=== PATIENT | male | born 1975 | race Caucasian/White ===

== ENCOUNTER 2016-10-29 06:06 | Day surgery (SDC) | payer OTHER ==
--- NOTE | 2016-10-22 11:46 | RADIOLOGY REPORT (SQ) ---
EXAM DESCRIPTION: CHEST PA/LATERAL COMPLETED DATE/TIME: 10/22/2016 11:32 am REASON FOR STUDY: PRE OP COMPARISON: None. EXAM PARAMETERS: NUMBER OF VIEWS: two views TECHNIQUE: Digital Frontal and Lateral radiographic views of the chest acquired. RADIATION DOSE: NA LIMITATIONS: none FINDINGS: LUNGS AND PLEURA: No opacities, masses or pneumothorax. No pleural effusion. MEDIASTINUM AND HILAR STRUCTURES: No masses or contour abnormalities. HEART AND VASCULAR STRUCTURES: Heart normal size. No evidence for failure. BONES: No acute findings. HARDWARE: None in the chest. OTHER: No other significant finding. IMPRESSION: NO SIGNIFICANT RADIOGRAPHIC FINDING IN THE CHEST. TECHNICAL DOCUMENTATION: JOB ID: [id number] [employer]- All Rights Reserved
[2016-10-22 12:00] LABS: ABSOLUTE EOSINOPHILS # (AUTO) 0.2 10^3/uL (0.0-0.6); ABSOLUTE LYMPHOCYTES (AUTO) 1.3 10^3/uL (0.5-4.7); ABSOLUTE MONOCYTES (AUTO) 0.4 10^3/uL (0.1-1.4); BASOPHILS % (AUTO) 0.2 % (0-2); EOSINOPHILS % (AUTO) 3.2 % (0-6); HEMATOCRIT 45.5 % (37.9-51.0); HEMOGLOBIN 15.2 g/dL (13.5-17.0); HGB HCT DIFFERENCE 0.1; LYMPHOCYTES % (AUTO) 25.8 % (13-45); MEAN CORPUSCULAR HEMOGLOBIN 30.5 pg (27.0-33.4); MEAN CORPUSCULAR HGB CONC 33.4 g/dL (32.0-36.0); MEAN CORPUSCULAR VOLUME 92 fl (80-97); MONOCYTES % (AUTO) 8.7 % (3-13); RED BLOOD COUNT 4.98 10^6/uL (4.35-5.55); RED CELL DISTRIBUTION WIDTH 13.6 % (11.5-14.0); SEGMENTED NEUTROPHILS % (AUTO) 62.1 % (42-78); WHITE BLOOD COUNT 4.9 10^3/uL (4.0-10.5)
[2016-10-22 12:01] LABS: APPEARANCE,URINE CLEAR; BILIRUBIN,URINE NEGATIVE (NEGATIVE); GLUCOSE, URINE NEGATIVE (NEGATIVE); KETONES,URINE NEGATIVE (NEGATIVE); LEUKOCYTE ESTERASE,URINE NEGATIVE (NEGATIVE); NITRITE,URINE NEGATIVE (NEGATIVE); PROTEIN,URINE NEGATIVE (NEGATIVE); URINE SPECIFIC GRAVITY 1.017; UROBILINOGEN,URINE NEGATIVE mg/dL (<2.0)
[2016-10-22 12:18] LABS: ANION GAP 10 (5-19); BLOOD UREA NITROGEN 21 mg/dL (7-20); CALCIUM 9.7 mg/dL (8.4-10.2); CARBON DIOXIDE 28 mmol/L (22-30); CHLORIDE 103 mmol/L (98-107); CREATININE RESULT 0.96 mg/dL (0.52-1.25); GLUCOSE 90 mg/dL (75-110); POTASSIUM 4.7 mmol/L (3.6-5.0); SODIUM 140.9 mmol/L (137-145)
--- NOTE | 2016-10-22 19:04 | EKG REPORT ---
SEVERITY:- ABNORMAL ECG - SINUS RHYTHM FIRST DEGREE AV BLOCK : Confirmed by: Everett Palencia MD 22-Oct-2016 19:04:05
[~2016-10-29 06:06] MED LIST: CEFAZOLIN 2 GM/D5W RTU 2 GM/50 ML RTUPB IV PRN; CEFAZOLIN SODIUM 2 GM in DEXTROSE 5%-WATER 100 ML IV PRN; LACTATED RINGERS 1000 ML IV PRN; LIDOCAINE 0.5% INJ-PF (5 MG/ML) 50 ML SDV SUBCUT PRN
[2016-10-29] MEDS ORDERED: FENTANYL CITRATE INJ/PF 250 MCG/5 ML AMPULE ONE (06:52)
[2016-10-29] MEDS ORDERED: MIDAZOLAM 2 MG/2 ML INJ ONE (06:53)
[2016-10-29] MEDS ORDERED: ACETAMINOPHEN 100 ML IV ONE (06:53)
[2016-10-29] MEDS ORDERED: PROPOFOL INJ 200 MG/20 ML VIAL IV ONE (06:53)
[2016-10-29] MEDS ORDERED: IBUPROFEN INJ 800 MG/8 ML VIAL IV ONE (06:53)
[2016-10-29] MEDS ORDERED: LIDOCAINE 2% INJ-PF (20 MG/ML) 10 ML AMPUL ONE (07:09)
[2016-10-29] MEDS ORDERED: DEXAMETHASONE SOD PHOSPHATE INJ 4 MG/1 ML VIAL ONE (07:09)
[2016-10-29] MEDS ORDERED: ONDANSETRON HCL INJ/PF 4 MG/2 ML SDV ONE (07:09)
[2016-10-29] MEDS ORDERED: BUPIVACAINE HCL 0.5 % INJ/PF 30 ML SDV ONE (07:53)
[2016-10-29] MEDS ORDERED: DIPHENHYDRAMINE HCL 50 MG/ML VIAL IV PRN (08:16)
[2016-10-29] MEDS ORDERED: MEPERIDINE HCL/PF INJ 25 MG/1 ML DISP.SYRIN IV PRN (08:16)
[2016-10-29] MEDS ORDERED: FENTANYL CITRATE INJ/PF 100 MCG/2 ML AMPUL IV PRN ×3 (08:16)
[2016-10-29] MEDS ORDERED: ONDANSETRON HCL INJ/PF 4 MG/2 ML SDV IV PRN ×2 (08:16→11:08)
[2016-10-29] MEDS ORDERED: MORPHINE SULFATE 10 MG/ML INJ IV PRN (08:16)
[2016-10-29] MEDS ORDERED: PROMETHAZINE HCL INJ 25 MG/1 ML VIAL IV PRN ×2 (08:16)
[2016-10-29] MEDS ORDERED: OXYCODONE-ACETAMINOPHEN 5-325 MG TABLET PO PRN ×3 (08:16→11:08)
--- NOTE | 2016-10-29 11:07 | PDOC DISCHARGE SUMMARY ---
Discharge Summary (SDC) - Discharge Final Diagnosis: Right Chronic Distal Biceps Rupture Date of Surgery: 10/29/16 Discharge Date: 10/29/16 Condition: Good Treatment or Instructions: scheduled [place]: [place]: [place]: Keep splint clean/dry/intact. Ice and elevate May begin finger range of motion attempting to make full fist. Stool softener of choice when on pain medication. Prescriptions: Oxycodone HCl/Acetaminophen [Percocet 5-325 mg Tablet] 1 - 2 tab PO ASDIR PRN # 40 tablet PRN Reason: Discharge Diet: As Tolerated Respiratory Treatments at Home: Deep Breathing/Coughing Discharge Activity: No Lifting Over 10 Pounds, No Lifting/Push/Pulling Report the Following to Your Physician Immediately: Increase in Pain, Fever over 101 Degrees, Unusual Bleeding, Redness, Swelling, Warmth, Increased Soreness
[2016-10-29] MEDS ORDERED: ATROPINE SULFATE INJ 1 MG/10 ML DISP.SYRIN IV ONE (11:08)
[2016-10-29] MEDS ORDERED: HYDROMORPHONE HCL INJ/PF 2 MG/ML AMPULE IV PRN (11:08)
--- NOTE | 2016-10-29 11:10 | Brief Operative Note ---
BRIEF OPERATIVE REPORT DATE OF SURGERY: 10/29/16 TIME OF SURGERY: 11:09 PREOPERATIVE DIAGNOSIS: Right Chronic Distal Biceps Rupture POSTOPERATIVE DIAGNOSIS: Same SURGEON: JOSE HARPER FINDINGS: Distal Biceps Rupture COMPLICATIONS: None ESTIMATED BLOOD LOSS: 25cc TISSUE REMOVED OR ALTERED: None TECHNICAL PROCEDURE: Right Distal Biceps Repair w/ Achilles Allograft
--- NOTE | 2016-10-29 11:11 | RADIOLOGY REPORT (SQ) ---
EXAM DESCRIPTION: NO CHG FLUORO; ELBOW RIGHT AP/LAT COMPLETED DATE/TIME: 10/29/2016 10:31 am REASON FOR STUDY: HARDWARE PLACEMENT S46.221A LACERATION OF MUSC/FASC/TEND PRT BICEPS, RIGHT ARM, M 25.521 PAIN IN RIGHT ELBOW COMPARISON: None. FLUOROSCOPY TIME: 0.6 minutes 3 Images saved to PACS TECHNIQUE: Intra-operative images acquired during surgical procedure to evaluate progress. NUMBER OF IMAGES: 3 LIMITATIONS: None. FINDINGS: Surgical instrumentation of the proximal radius. IMPRESSION: IMAGE(S) OBTAINED DURING PROCEDURE. COMMENT: Quality ID [id number]: Final reports for procedures using fluoroscopy that document radiation exp osure indices, or exposure time and number of fluorographic images (if radiation exposure indices are not available) Please consult full operative report of the attending physician for description of the procedure. TECHNICAL DOCUMENTATION: JOB ID: [id number] [employer]- All Rights Reserved
--- NOTE | 2016-10-29 11:11 | RADIOLOGY REPORT (SQ) ---
EXAM DESCRIPTION: NO CHG FLUORO; ELBOW RIGHT AP/LAT COMPLETED DATE/TIME: 10/29/2016 10:31 am REASON FOR STUDY: HARDWARE PLACEMENT S46.221A LACERATION OF MUSC/FASC/TEND PRT BICEPS, RIGHT ARM, M 25.521 PAIN IN RIGHT ELBOW COMPARISON: None. FLUOROSCOPY TIME: 0.6 minutes 3 Images saved to PACS TECHNIQUE: Intra-operative images acquired during surgical procedure to evaluate progress. NUMBER OF IMAGES: 3 LIMITATIONS: None. FINDINGS: Surgical instrumentation of the proximal radius. IMPRESSION: IMAGE(S) OBTAINED DURING PROCEDURE. COMMENT: Quality ID [id number]: Final reports for procedures using fluoroscopy that document radiation exp osure indices, or exposure time and number of fluorographic images (if radiation exposure indices are not available) Please consult full operative report of the attending physician for description of the procedure. TECHNICAL DOCUMENTATION: JOB ID: [id number] [employer]- All Rights Reserved
--- NOTE | 2016-10-29 12:00 | Operative Report ---
Operative Report DATE OF SURGERY: 10/29/16 PREOPERATIVE DIAGNOSIS: Right Chronic Distal Biceps Rupture POSTOPERATIVE DIAGNOSIS: Same OPERATION: Right Distal Biceps Repair w/ Achilles Allograft SURGEON: JOSE HARPER ANESTHESIA: GA TISSUE REMOVED OR ALTERED: None COMPLICATIONS: None ESTIMATED BLOOD LOSS: 25cc INTRAOPERATIVE FINDINGS: Distal Biceps Rupture PROCEDURE: Indication for above procedure: 41-year-old male who sustained a distal biceps tendon rupture that occurred in April 2016. He subsequently followed up with me about 6 months after the original injury. At that point we discussed treatment options and prognosis given the longevity of his injury including alternative treatment options such as nonoperative intervention risks and benefits were explained to the patient who verbalized understanding and consented for the procedure. Procedure In Detail: Patient was seen and evaluated in the preoperative holding area. The RIGHT upper extremity was initialized and marked. Patient received 2g of Ancef IV for bacterial prophylaxis. Patient was taken back to the operative room where transferred to the operative table and placed under general anesthesia. Once they were adequately anesthetized a surgical team debriefing was performed ensuring all instrumentation was available, the surgical procedure was discussed with possible concerns reviewed. The upper extremity was prepped with ChloraPrep and draped in a sterile fashion, sterile tourniquet was placed. A timeout was done identifying correct patient, procedure and extremity everyone in attendance agree with this and verbalized no concerns. The extremity was exsanguinated the tourniquet was inflated to 250 mmHg. S shaped skin incision was made blunt dissection was performed through the soft tissues. Any peripheral vascular was coagulated bipolar cautery. Small branches of the basilic vein were tied off allowing retraction of the basilic vein radially. I first identified the lateral antebrachial cutaneous nerve distal to the scarred in biceps tendon the lateral antebrachial cutaneous nerve was then followed and neurolysed proximally as it exited between the biceps and brachialis. I then turned my attention medially. The brachial artery and median nerve were identified a vessel loop was placed around the brachial artery and median nerve this was neurolysed proximally and distally and retracted ulnarly. A vessel loop was then placed around the lateral antebrachial cutaneous nerve. Once these major neurologic structures were identified I proceeded with dissection around the scarred and biceps muscle and tendon. I was able to free up the biceps muscle belly there is a small 5 cm portion of the tendon remaining distally but given the retraction and chronicity this would not be able to be repaired primarily despite extensive soft tissue release. Once I determine this I proceeded with preparation of the Achilles tendon allograft. The Achilles tendon allograft was prepared on the back table for fitting of a 8 mm tunnel. Once I was satisfied with the appropriate amount of diameter was secured distally with a fiber loop suture. The Arthrex distal biceps button was then placed and secured with a hemostat and my graft was covered with dampened Ray-Kale. I then turned my attention to identification of the biceps insertion. Branches of the leash of Vern were identified and coagulated. The radial nerve was identified proximal to its trajectory into the supinator muscle. During anterior dissection my behavioral assistant maintained full supination of the arm. I was able to identify the radial tuberosity. I then utilized the Arthrex drill it was drilled unicortical along the ulnar aspect of the radial tuberosity aiming approximately 30 ulnarly. And C arm fluoroscopy was obtained confirming appropriate placement within the radial tuberosity. I then drilled bicortically and used the 8 mm reamer during reaming it was irrigated with saline to avoid bone fragment and postoperative synostosis. The Achilles tendon allograft with the biceps button attached was placed into my docking hole all 4 strands were then pulled to confirm the button was flipped. Then using the tension slide technique allograft was sutured into the tunnel under direct visualization I was able to confirm the tunnel with docked into the reamed hole. 1 of the free and the FiberWire suture was then passed through the tendon and secured with a knot. I then placed my 7 mm biceps tenodesis screw radially further forcing the allograft ulnarly to improve postoperative supination. The wound was then copiously irrigated with normal saline and my attention turned to fixation of the allograft proximally. The remnant distal biceps tendon was then secured with 2-0 FiberWire utilizing a Krakw stitch. My behavioral assistant pulled tension on my allograft while I pulled tension on the biceps tendon this was then secured utilizing horizontal mattress sutures into my Achilles tendon autograft while the elbow was flexed at 80. Once complete I checked tension of my graft I had good stability at 75 of flexion. I then secured the remaining tendon to my allograft once again with horizontal mattress sutures. The remaining allograft tendon was draped over the biceps muscle and secured with 2-0 FiberWire [id number] sutures and 0 Vicryl suture. Once fixation was complete I had good stability of my tendon graft to 25 of extension. I then copiously irrigated the wound with normal saline. Tourniquet was deflated. Patient had good peripheral perfusion. Peripheral vasculature was coagulated with bipolar cautery. Subcutaneous tissues were closed with interrupted 3-0 Monocryl suture. Skin was closed with running 3-0 nylon suture. 20 cc of 0.5% Marcaine with an epinephrine was injected for postoperative pain control. Wound was dressed with Xeroform 4 x 4's, ABD and cast padding. Patient was placed in a plaster splint maintaining 90 of elbow flexion and full supination. Sponge counts, instrument counts, needle counts counts were correct. Patient was then awoken from anesthesia. Transferred from the operating room table to the operating room stretcher. There was no intraoperative complications patient tolerated procedure well stable to PACU. Postoperative plan: Patient will continue splint with the elbow at 75 of extension for 6 weeks postoperatively. He will be set up with occupational therapy to be placed in a thermoplastic splint at his postoperative visit. At 6 weeks the splint will be removed he will begin range of motion exercises Slowly progressing to full extension.
[2016-10-29 13:05] VITALS: BP 118/73
[2016-10-29] MEDS ORDERED: SUCCINYLCHOLINE CHLORIDE INJ 200 MG/10 ML VIAL ONE (14:39)
[2016-10-29] MEDS ORDERED: GLYCOPYRROLATE INJ 0.4 MG/2 ML VIAL ONE (14:39)
== END 2016-10-29 12:55 | disposition home or self-care (01) ==
LOC: OROUT 06:06
PROVIDERS: ATTEND Orthopaedic Surgery
PROC: 0LU Tendons, Supplement (ICD-10-PCS; 2016-10-29)
PROC: 0LQ30ZZ Repair Right Upper Arm Tendon, Open Approach (ICD-10-PCS; principal; 2016-10-29 08:00)
DX: S46.211A Strain of muscle, fascia and tendon of other parts of biceps, right arm, initial encounter (principal); X58.XXXA Exposure to other specified factors, initial encounter; R01.1 Cardiac murmur, unspecified; F41.9 Anxiety disorder, unspecified; Z79.899 Other long term (current) drug therapy; Z79.1 Long term (current) use of non-steroidal anti-inflammatories (NSAID)
CPT/HCPCS: 93005; 36415; 85025; 80048; 81001; 71020; 73070; 93010; 24342; L3650; J2250; J0461; J0690 ×2; J1100; J3010; J0330; J2405; J2704; J3490; J0131; J1741; 01716